=== PATIENT | female | born 1980 | race American Indian/Alaskan Native ===

== ENCOUNTER 2019-07-29 15:19 | Emergency (ER) | payer SELFPAY ==
[2019-07-29 17:07] VITALS: BP 121/70
[2019-07-29 17:48] LABS: Bacteria,Urine 1+ /HPF (Negative); Mucus,Urine 2+ /HPF
[2019-07-29 18:19] LABS: Bilirubin,Urine Negative (Negative); Blood,Urine Trace (Negative); Color,Urine Straw (Yellow)
[2019-07-29 18:20] LABS: HCG Qualitative,Urine Negative (Negative); Protein,Urine <30 mg dL mg/dL (Negative)
--- NOTE | 2019-07-29 19:06 | Ultrasound Report ---
CLINICAL DATA: left pelvic pain TECHNICAL DATA: Ultrasound, pelvic (nonobstetric), real-time with image documentation; transabdominal and transvagina l imaging with Doppler was performed. FINDINGS: The uterus is of normal size and echogenicity. There are no uterine masses. Endometrial thickness is within normal limits, measuring 0.47 cm. The right and left ovaries are of symmetric size and echogenicity. 5.6 x 5.3 x 4.5 cm cyst present l eft adnexa. There are no other ovarian or adnexal masses. Doppler imaging demonstrates normal vascular flow to both ovaries. There is no significant quantity of free fluid dependently within the pelvis. IMPRESSION: Left ovarian cyst as noted GUIDELINES FOR IMAGING OF OVARIAN--ADNEXAL CYST: WOMEN OF REPRODUCTIVE AGE: 1. Cysts <=3 cm: Normal physiologic findings; at the discretion of the interpreting physician whether or not to describe them in the imaging report; do not need follow-up. 2. Cysts >3 and <=5 cm: Should be described in the imaging report with a statement that they are almo st certainly benign; do not need follow-up. 3. Cysts >5 and <=7 cm: Should be described in the imaging report with a statement that they are almo st certainly benign; yearly follow-up with US recommended. 4. Cysts >7 cm: Since these may be difficult to assess completely with US, further imaging with magne tic resonance (MR) or surgical evaluation should be considered. POSTMENOPAUSAL WOMEN: 1. Cysts <=1 cm: Are clinically inconsequential; at the discretion of the interpreting physician whet her or not to describe them in the imaging report; do not need follow-up. 2. Cysts >1 and <=7 cm: Should be described in the imaging report with statement that they are almost certainly benign; yearly follow-up, at least initially, with US recommended. Some practices may opt to increase the lower size threshold for follow-up from 1 cm to as high as 3 cm. One may opt to ha nue follow-up annually or to decrease the frequency of follow-up once stability or decrease in size h as been confirmed. Cysts in the larger end of this range should still generally be followed on a regu lar basis. 3. Cysts >7 cm: Since these may be difficult to assess completely with US, further imaging with MR or surgical evaluation should be considered. Signer Name: Albino Ramirez MD Signed: 07/29/2019 7:02 PM Workstation Name: [id number]
[2019-07-29 19:43] LABS: Basophils % (Auto) 0.4 % (0.0-1.8); Eosinophils # (Auto) 0.1 K/mm3 (0.0-0.4); Eosinophils % (Auto) 1.5 % (0.0-4.3); Hematocrit 38.5 % (30.3-42.9); Hemoglobin 12.7 gm/dl (10.1-14.3); Lymphocytes # (Auto) 2.9 K/mm3 (1.2-5.4); Lymphocytes % (Auto) 30.4 % (13.4-35.0); Mean Corpuscular HGB Conc 33 % (30-34); Mean Corpuscular Volume 89 fl (79-97); Monocytes # (Auto) 0.5 K/mm3 (0.0-0.8); Platelet Count 190 K/mm3 (140-440); Red Blood Count 4.32 M/mm3 (3.65-5.03); Red Cell Distribution Width 14.1 % (13.2-15.2)
[2019-07-29 20:03] LABS: BUN/Creatinine Ratio 9; Blood Urea Nitrogen 6 mg/dL (7-17); Hemolysis Index 4
--- NOTE | 2019-07-29 20:10 | Emergency Department Report ---
ED Female HPI - General Chief complaint: Abdominal Pain Stated complaint: LOWER ABD PAIN Time Seen by Provider: 07/29/19 19:53 Source: patient Mode of arrival: Ambulatory Limitations: No Limitations - History of Present Illness Initial comments: This is a 39-year-old female who presents the ED complaining of left-sided lower pelvic pain that began yesterday. Patient also admits nausea but no vomiting. Patient states she does have a regular cycles but otherwise no prior medical history. Patient denies vaginal bleeding, vaginal discharge or any other symptoms. Patient states pain is localized to the left pelvic region. She denies dysuria, fever, - Related Data Previous Rx's Medication Instructions Recorded Last Taken Type Nitrofurantoin [place]/M-Cryst 100 mg PO Q12HR #10 capsule 07/29/19 Unknown Rx [Macrobid CAP] Ondansetron [Zofran ODT TAB] 8 mg PO Q12HR #20 tab.rapdis 07/29/19 Unknown Rx traMADoL [Ultram 50 MG tab] 50 mg PO Q6HR PRN #20 tablet 07/29/19 Unknown Rx Allergies Allergy/AdvReac Type Severity Reaction Status Date / Time No Known Allergies Allergy Unverified 07/29/19 15:21 ED Review of Systems ROS: Stated complaint: LOWER ABD PAIN Other details as noted in HPI Comment: All other systems reviewed and negative ED Past Medical Hx - Past Medical History Previous Medical History?: No - Surgical History Past Surgical History?: Yes Additional Surgical History: Corneal transplant - Social History Smoking Status: Never Smoker Substance Use Type: None - Medications Home Medications: Home Medications Medication Instructions Recorded Confirmed Last Taken Type Nitrofurantoin [place]/M-Cryst 100 mg PO Q12HR #10 capsule 07/29/19 Unknown Rx [Macrobid CAP] Ondansetron [Zofran ODT TAB] 8 mg PO Q12HR #20 tab.rapdis 07/29/19 Unknown Rx traMADoL [Ultram 50 MG tab] 50 mg PO Q6HR PRN #20 tablet 07/29/19 Unknown Rx ED Physical Exam - General Limitations: No Limitations General appearance: alert, in no apparent distress - Head Head exam: Present: atraumatic, normocephalic - Eye Eye exam: Present: normal appearance - ENT ENT exam: Present: mucous membranes moist - Neck Neck exam: Present: normal inspection - Respiratory Respiratory exam: Present: normal lung sounds bilaterally. Absent: respiratory distress - Cardiovascular Cardiovascular Exam: Present: regular rate, normal rhythm. Absent: systolic murmur, diastolic murmur, rubs, gallop - GI/Abdominal GI/Abdominal exam: Present: soft, distended, tenderness (Mild tenderness to palpation of the left pelvic region,), normal bowel sounds. Absent: guarding, rebound, mass, bruit - Extremities Exam Extremities exam: Present: normal inspection, full ROM - Back Exam Back exam: Present: normal inspection, full ROM - Neurological Exam Neurological exam: Present: alert, oriented X3, normal gait - Psychiatric Psychiatric exam: Present: normal affect, normal mood - Skin Skin exam: Present: warm, dry, intact, normal color. Absent: rash ED Course Vital Signs 07/29/19 17:03 Temperature 98.3 F Pulse Rate 61 Respiratory 18 Rate Blood Pressure 121/70 O2 Sat by Pulse 98 Oximetry ED Medical Decision Making - Lab Data Result diagrams: 07/29/19 19:10 07/29/19 19:10 Laboratory Last Values WBC 9.6 K/mm3 (4.5-11.0) 07/29/19 19:10 RBC 4.32 M/mm3 (3.65-5.03) 07/29/19 19:10 Hgb 12.7 gm/dl (10.1-14.3) 07/29/19 19:10 Hct 38.5 % (30.3-42.9) 07/29/19 19:10 MCV 89 fl (79-97) 07/29/19 19:10 MCH 29 pg (28-32) 07/29/19 19:10 MCHC 33 % (30-34) 07/29/19 19:10 RDW 14.1 % (13.2-15.2) 07/29/19 19:10 Plt Count 190 K/mm3 (140-440) 07/29/19 19:10 Lymph % (Auto) 30.4 % (13.4-35.0) 07/29/19 19:10 Dickenson % (Auto) 5.0 % (0.0-7.3) 07/29/19 19:10 Eos % (Auto) 1.5 % (0.0-4.3) 07/29/19 19:10 Baso % (Auto) 0.4 % (0.0-1.8) 07/29/19 19:10 Lymph # 2.9 K/mm3 (1.2-5.4) 07/29/19 19:10 Dickenson # 0.5 K/mm3 (0.0-0.8) 07/29/19 19:10 Eos # 0.1 K/mm3 (0.0-0.4) 07/29/19 19:10 Baso # 0.0 K/mm3 (0.0-0.1) 07/29/19 19:10 Seg Neutrophils % 62.7 % (40.0-70.0) 07/29/19 19:10 Seg Neutrophils # 6.0 K/mm3 (1.8-7.7) 07/29/19 19:10 Sodium 139 mmol/L (137-145) 07/29/19 19:10 Potassium 3.6 mmol/L (3.6-5.0) 07/29/19 19:10 Chloride 103.0 mmol/L (98-107) 07/29/19 19:10 Carbon Dioxide 21 mmol/L (22-30) L 07/29/19 19:10 Anion Gap 19 mmol/L 07/29/19 19:10 BUN 6 mg/dL (7-17) L 07/29/19 19:10 Creatinine 0.7 mg/dL (0.7-1.2) 07/29/19 19:10 Estimated GFR > 60 ml/min 07/29/19 19:10 BUN/Creatinine Ratio 9 % 07/29/19 19:10 Glucose 123 mg/dL (65-100) H 07/29/19 19:10 Calcium 9.0 mg/dL (8.4-10.2) 07/29/19 19:10 Urine Color Straw (Yellow) 07/29/19 17:33 Urine Turbidity Hazy (Clear) 07/29/19 17:33 Urine pH 5.0 (5.0-7.0) 07/29/19 17:33 Ur Specific [place] 1.035 (1.003-1.030) H 07/29/19 17:33 Urine Protein <30 mg dl mg/dL (Negative) 07/29/19 17:33 Urine Glucose (UA) Negative mg/dL (Negative) 07/29/19 17:33 Urine Ketones Trace mg/dL (Negative) 07/29/19 17:33 Urine Blood Trace (Negative) 07/29/19 17:33 Urine Nitrite Negative (Negative) 07/29/19 17:33 Ur Reducing Substances Not Reportable 07/29/19 17: Urine Bilirubin Negative (Negative) 07/29/19 17:33 Urine Ictotest Not Reportable 07/29/19 17:33 Urine Urobilinogen 2.0 mg/dL (<2.0) 07/29/19 17:33 Ur Leukocyte Esterase Trace (Negative) 07/29/19 17: Urine WBC (Auto) 20.0 /HPF (0.0-6.0) H 07/29/19 17: Urine RBC (Auto) 21.0 /HPF (0.0-6.0) 07/29/19 17: U Epithel Cells (Auto) 9.0 /HPF (0-13.0) 07/29/19 17: Urine Bacteria (Auto) 1+ /HPF (Negative) 07/29/19 17: Urine Mucus 2+ /HPF 07/29/19 17: Urine HCG, Qual Negative (Negative) 07/29/19 17:33 - Radiology Data Radiology results: report reviewed, image reviewed left pelvic pain TECHNICAL DATA: Ultrasound, pelvic (nonobstetric), real-time with image documentation; transabdominal and transvaginal imaging with Doppler was performed. FINDINGS: The uterus is of normal size and echogenicity. There are no uterine masses. Endometrial thickness is within normal limits, measuring 0.47 cm. The right and left ovaries are of symmetric size and echogenicity. 5.6 x 5.3 x 4.5 cm cyst present left adnexa. There are no other ovarian or adnexal masses. Doppler imaging demonstrates normal vascular flow to both ovaries. There is no significant quantity of free fluid dependently within the pelvis. IMPRESSION: Left ovarian cyst as noted GUIDELINES . Signer Name: Albino Ramirez MD Signed: 07/29/2019 7:02 PM Workstation Name: [id number] Transcribed By: WG Dictated By: Albino Ramirez MD Electron ically Authenticated By: Albino Ramirez MD Signed Date/Time: 07/29/191901 - Medical Decision Making This 39-year-old female presents with pelvic pain secondary to left ovarian cyst. All labs are within normal limits, urinalysis mild bacteria noted will treat with Macrobid Discussed the patient to follow-up with [facility] doctor. Referrals were given to patient. Patient is in no acute distress while in ED. Pain medication given in ED Discussed findings with the patient. Discussed the patient ultrasound findings and need to follow-up. Ultrasound report as above. Critical care attestation.: If time is entered above; I have spent that time in minutes in the direct care of this critically ill patient, excluding procedure time. ED Disposition Clinical Impression: Acute cystitis, Left ovarian cyst, Pelvic pain Disposition: - TO HOME OR SELFCARE Is pt being admited?: No Does the pt Need Aspirin: No Condition: Stable Instructions: Ovarian Cyst (ED), Abdominal Pain (ED) Additional Instructions: Make sure to follow up with the primary care physician as discussed. Take all your medications as you've been prescribed. If you have any worsening symptoms or develop new symptoms please return to ED immediately. Prescriptions: Nitrofurantoin Dickenson/M-Cryst [Macrobid CAP] 100 mg PO Q12HR #10 capsule traMADoL [Ultram 50 MG tab] 50 mg PO Q6HR PRN #20 tablet PRN Reason: Pain Ondansetron [Zofran ODT TAB] 8 mg PO Q12HR #20 tab.rapdis Referrals: [facility] [Primary Care Provider] - 3-5 Days [facility] [Provider Group] - 3-5 Days [facility] [Provider Group] - 3-5 Days [facility] [Provider Group] - 3-5 Days Forms: Work/School Release Form(ED) Time of Disposition: 20:52
[2019-07-29] MEDS ORDERED: ONDANSETRON 4 MG ODT TAB PO ONE (21:07)
[2019-07-29] MEDS ORDERED: IBUPROFEN 800 MG TAB PO ONE (21:08)
== END 2019-07-29 21:15 | disposition home or self-care (01) ==
LOC: ED 15:19
DX: N30.00 Acute cystitis without hematuria (principal); N83.202 Unspecified ovarian cyst, left side
CPT/HCPCS: 36415; 76856; 80048; 81001; 81025; 85025; 87086; 99284; Q0162

== ENCOUNTER 2020-02-20 19:42 | Emergency (ER) | payer SELFPAY ==
[2020-02-20 20:26] VITALS: BP 107/71
[2020-02-20] MEDS ORDERED: ACETAMINOPHEN 500 MG TAB PO ONE (22:02)
[2020-02-20] MEDS ORDERED: IBUPROFEN 600 MG TAB PO ONE (22:02)
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
[2020-02-21 00:59] LABS: Bacteria,Urine 1+ /HPF (Negative); Bilirubin,Urine NEG (Negative); Blood,Urine MOD (Negative); Color,Urine Yellow (Yellow); Mucus,Urine FEW /HPF; Protein,Urine <15 mg/dL mg/dL (Negative)
[2020-02-21 01:02] LABS: HCG Qualitative,Urine Positive (Negative)
== END 2020-02-20 23:45 | disposition left against medical advice (07) ==
LOC: ED 19:42
DX: M62.830 Muscle spasm of back (principal); M62.838 Other muscle spasm; F17.200 Nicotine dependence, unspecified, uncomplicated; Z79.899 Other long term (current) drug therapy; V49.49XA Driver injured in collision with other motor vehicles in traffic accident, initial encounter; Y93.89 Activity, other specified; Y92.488 Other paved roadways as the place of occurrence of the external cause; Y99.8 Other external cause status
CPT/HCPCS: 81001; 81025; 87086; 99283

== ENCOUNTER 2021-03-29 11:55 | Emergency (ER) | payer SELFPAY ==
--- NOTE | 2021-03-29 12:38 | Emergency Department Report ---
- General Chief complaint: Skin Rash Stated complaint: DERMATITUS,PAIN IN LEGS Time Seen by Provider: 03/29/21 12:16 Source: patient Mode of arrival: Ambulatory Limitations: No Limitations - History of Present Illness Initial comments: Patient is a 41-year-old female presents emergency room complaints of an exacerbation to her eczema diffusely that has been worsening over the last couple weeks. Patient states that she previously used to see a medical interpreter but due to lack of insurance she has not been able to see them anymore. She states that she was getting Kenalog injections, hydroxyzine, triamcinolone, she states it's been approximately 4 years since she has had those medications. He states that she has been using everything possible [id number] for eczema but it she states it is no longer helping. She states that she has diffuse itching and rash. She denies any fever, drainage, vomiting, diarrhea, chills. Past medical history of corneal transplant. No allergies to medications. - Related Data Previous Rx's Medication Instructions Recorded Last Taken Type Nitrofurantoin [place]/M-Cryst 100 mg PO Q12HR #10 capsule 07/29/19 Unknown Rx [Macrobid CAP] Ondansetron [Zofran ODT TAB] 8 mg PO Q12HR #20 tab.rapdis 07/29/19 Unknown Rx traMADoL [Ultram 50 MG tab] 50 mg PO Q6HR PRN #20 tablet 07/29/19 Unknown Rx Triamcinolone Acetonide 1 applicatio TP BID #80 g 03/29/21 Unknown Rx [Triamcinolone 0.1% LOTION] hydrOXYzine HCL [Atarax] 25 mg PO Q8HR PRN #12 tablet 03/29/21 Unknown Rx Allergies Allergy/AdvReac Type Severity Reaction Status Date / Time No Known Allergies Allergy Unverified 07/29/19 15:21 Abscess Boil HPI - HPI Chief Complaint: Skin Rash Stated Complaint: DERMATITUS,PAIN IN LEGS Time Seen by Provider: 03/29/21 12:16 Home Medications: Previous Rx's Medication Instructions Recorded Last Taken Type Nitrofurantoin [place]/M-Cryst 100 mg PO Q12HR #10 capsule 07/29/19 Unknown Rx [Macrobid CAP] Ondansetron [Zofran ODT TAB] 8 mg PO Q12HR #20 tab.rapdis 07/29/19 Unknown Rx traMADoL [Ultram 50 MG tab] 50 mg PO Q6HR PRN #20 tablet 07/29/19 Unknown Rx Triamcinolone Acetonide 1 applicatio TP BID #80 g 03/29/21 Unknown Rx [Triamcinolone 0.1% LOTION] hydrOXYzine HCL [Atarax] 25 mg PO Q8HR PRN #12 tablet 03/29/21 Unknown Rx Allergies/Adverse Reactions: Allergies Allergy/AdvReac Type Severity Reaction Status Date / Time No Known Allergies Allergy Unverified 07/29/19 15:21 ED Review of Systems ROS: Stated complaint: DERMATITUS,PAIN IN LEGS Other details as noted in HPI Comment: All other systems reviewed and negative ED Past Medical Hx - Past Medical History Previous Medical History?: No - Surgical History Past Surgical History?: Yes Additional Surgical History: Corneal transplant - Social History Smoking Status: Current Every Day Smoker Substance Use Type: None - Medications Home Medications: Home Medications Medication Instructions Recorded Confirmed Last Taken Type Nitrofurantoin [place]/M-Cryst 100 mg PO Q12HR #10 capsule 07/29/19 Unknown Rx [Macrobid CAP] Ondansetron [Zofran ODT TAB] 8 mg PO Q12HR #20 tab.rapdis 07/29/19 Unknown Rx traMADoL [Ultram 50 MG tab] 50 mg PO Q6HR PRN #20 tablet 07/29/19 Unknown Rx Triamcinolone Acetonide 1 applicatio TP BID #80 g 03/29/21 Unknown Rx [Triamcinolone 0.1% LOTION] hydrOXYzine HCL [Atarax] 25 mg PO Q8HR PRN #12 tablet 03/29/21 Unknown Rx ED Physical Exam - General Limitations: No Limitations General appearance: alert, in no apparent distress - Head Head exam: Present: atraumatic, normocephalic - ENT ENT exam: Present: mucous membranes moist - Respiratory Respiratory exam: Absent: respiratory distress, accessory muscle use - Neurological Exam Neurological exam: Present: alert, oriented X3 - Psychiatric Psychiatric exam: Present: normal affect, normal mood - Skin Skin exam: Present: warm, dry, other (hypertrophic and dry skin with scaling patches/plaques, no erythema, no drainage, no blistering) ED Course Vital Signs 03/29/21 03/29/21 12:07 13:24 Temperature 97.7 F Pulse Rate 96 H 108 H Respiratory 16 16 Rate Blood Pressure 126/91 125/75 [Left] O2 Sat by Pulse 96 Oximetry ED Medical Decision Making - Medical Decision Making Patient is a 41-year-old female presents emergency room complaints of an exacerbation to her eczema diffusely that has been worsening over the last coupl e weeks. Patient states that she previously used to see a medical interpreter but due to lack of insurance she has not been able to see them anymore. She states that she was getting Kenalog injections, hydroxyzine, triamcinolone, she states it's been approximately 4 years since she has had those medications. He states that she has been using everything possible [id number] for eczema but it she states it is no longer helping. She states that she has diffuse itching and rash. She denies any fever, drainage, vomiting, diarrhea, chills. Past medical history of corneal transplant. No allergies to medications. Vitals are normal. On exam:hypertrophic and dry skin with scaling patches/plaques, no erythema, no drainage, no blistering. Examination appears consistent with eczema, no signs of secondary infection. Patient given prescription for medications. Advised patient Please use medication as prescribed. Follow-up with your primary care doctor. Return to emergency room for any new or worsening symptoms. Critical care attestation.: If time is entered above; I have spent that time in minutes in the direct care of this critically ill patient, excluding procedure time. ED Disposition Clinical Impression: Acute eczema Disposition: HOME / SELF CARE / HOMELESS Is pt being admited?: No Does the pt Need Aspirin: No Condition: Stable Instructions: Eczema Additional Instructions: Please use medication as prescribed. Follow-up with your primary care doctor. Return to emergency room for any new or worsening symptoms. Prescriptions: hydrOXYzine HCL [Atarax] 25 mg PO Q8HR PRN #12 tablet PRN Reason: Itching Triamcinolone Acetonide [Triamcinolone 0.1% LOTION] 1 applicatio TP BID #80 g Referrals: RODNEY JACKSON MD [Staff Physician] - 3-5 Days [facility] [Provider Group] - 3-5 Days [facility] [Outside] - 3-5 Days [facility] [Outside] - 3-5 Days [facility], [LAB/CONTRACT] - 3-5 Days Time of Disposition: 12:33 Print Language: ALBANIAN
[2021-03-29 13:27] VITALS: BP 125/75
== END 2021-03-29 13:24 | disposition home or self-care (01) ==
LOC: ED 11:55
DX: L30.9 Dermatitis, unspecified (principal); F17.200 Nicotine dependence, unspecified, uncomplicated; Z98.890 Other specified postprocedural states; Z79.899 Other long term (current) drug therapy
CPT/HCPCS: 99282